=== PATIENT | female | born 1990 | race Caucasian/White ===

== ENCOUNTER 2018-07-05 16:02 | Emergency (ER) | payer SELFPAY ==
[2018-07-05 16:08] VITALS: BP 116/84; PULSE 126; RESP 28; TEMP 37; O2SAT 100; BMI 22.8
--- NOTE | 2018-07-05 16:52 | DI.RAD.S_ITS ---
PROCEDURE: XR CHEST 2V INDICATIONS: shortness of breath TECHNIQUE: 2 views of the chest were acquired. COMPARISON: None. FINDINGS: Surgical changes and devices: None. Lungs and pleura: No pleural effusions or pneumothorax. Lungs are clear. Mediastinum: Mediastinal contours are normal. Heart size is normal. Bones and chest wall: No suspicious bony abnormalities. Soft tissues appear unremarkable. IMPRESSION: No acute process. Dictated by: Diana Mcmillan M.D. on 07/05/2018 at 17:13 Approved by: Diana Mcmillan M.D. on 07/05/2018 at 17:14
--- NOTE | 2018-07-05 17:04 | ED_ITS ---
HPI - SOB/Dyspnea <JAVIER Kennedy - Last Filed: 07/05/18 21:13> General Chief Complaint: Shortness of Breath/Dyspnea Stated Complaint: trouble breathing Time Seen by Provider: 07/05/18 16:37 Source: patient Mode of arrival: ambulatory Limitations: no limitations History of Present Illness Patient presents with chief complaint of shortness of breath and cough on and off for a week. Also complains of congestion. She states she is coughing so hard that her right ribs hurt. She felt dizzy earlier today and fell while walking so she came into the emergency department. Patient stated she started having some numbness and tingling in her left hand and legs while on her way into the emergency department. She complains of abdominal pain in her lower stomach that occurred in triage. She denies any significant medical history, denies any daily medications has a history of anxiety and panic attacks. She denies any fevers, nausea vomiting or diarrhea. Patient denies any urinary symptoms denies dysuria urgency frequency. She denies vaginal symptoms. She denies chance of . Related Data Home Medications Medication Instructions Recorded Confirmed No Known Home Medications 07/05/18 07/05/18 Allergies Allergy/AdvReac Type Severity Reaction Status Date / Time No Known Drug Allergies Allergy Verified 07/05/18 16:15 Review of Systems <JAVIER Kennedy - Last Filed: 07/05/18 21:13> Review of Systems GENERAL: See HPI HEENT: Denies sinus pain, ear pain, sore throat, difficulty swallowing, dizziness. RESPIRATORY: Denies dyspnea, cough, wheezing, hemoptysis, sputum. CARDIOVASCULAR: Denies chest pain, palpitations, orthopnea, edema, GASTROINTESTINAL: See HPI : Denies dysuria, frequency, incontinence, hematuria, urinary retention. MUSCULOSKELETAL: denies weakness, joint pain, or bony pain SKIN: Denies rash, skin lesions, or other NEUROLOGIC: Denies weakness, headache, numbness, change in speech, confusion, seizures, incoordination. PSYCHIATRIC: No concerning psychosocial issues. 12 point review of systems is negative except for those stated above Exam <JAVIER Kennedy - Last Filed: 07/05/18 21:13> Narrative Exam Narrative: GENERAL: Lying on stretcher, teary put taking rapid deep breaths. HEAD: Atraumatic. Normocephalic. No temporal or scalp tenderness. EYES: Pupils equal round and reactive. Extraocular motions intact. No scleral icterus. No injection or drainage. ENT: Nose without bleeding, purulent drainage or septal hematoma. Throat without erythema, tonsillar hypertrophy or exudate. Uvula midline. Airway patent. NECK: Trachea midline. No JVD or lymphadenopathy. Supple, nontender, no meningeal signs. CARDIOVASCULAR: Tachycardic rate and regular rhythm without murmurs, gallops, or rubs. RESPIRATORY: Clear to auscultation. Breath sounds equal bilaterally. No wheezes , rales, or rhonchi. No increased respiratory effort. No cough on exam. Pain to palpation of right lower ribs. Slight pain on lateral chest wall compression. No pain on anterior posterior chest wall compression. GASTROINTESTINAL: Abdomen soft, nondistended. No hepato-splenomegaly, or palpable masses. No guarding. Diffusely tender to right lower quadrant and left lower quadrant palpation. EXTREMITIES: No clubbing, cyanosis, or edema. No joint tenderness, effusion, or edema noted. Strength is equal upper and lower extremities bilaterally. BACK: Nontender without deformity or crepitance. No flank tenderness. NEURO: AOx3. Anxious. Stable gait. No slurred speech. Cranial nerves grossly SKIN: No rash or erythema. Initial Vital Signs Initial Vital Signs: Vital Signs Temperature 98.6 F 07/05/18 16:08 Pulse Rate 126 H 07/05/18 16:08 Respiratory Rate 28 H 07/05/18 16:08 Blood Pressure 116/84 07/05/18 16:08 Pulse Oximetry 100 07/05/18 16:08 <Emil Freeman DO - Last Filed: 07/09/18 05:49> Initial Vital Signs Initial Vital Signs: Vital Signs Temperature 98.6 F 07/05/18 16:08 Pulse Rate 126 H 07/05/18 16:08 Respiratory Rate 28 H 07/05/18 16:08 Blood Pressure 116/84 07/05/18 16:08 Pulse Oximetry 100 07/05/18 16:08 Scores <CARMEN Kennedy-AMBROSE - Last Filed: 07/05/18 21:13> PERC Score Age greater than or equal to 50 years: No Heart rate greater than or equal to 100 bpm: No Room Air O2 Sat less than 95%: No Unilateral leg swelling: No Recent trauma or surgery: No Hemoptysis: No Prior PE or DVT: No Hormone Use: No Total PERC Score: 0 Course <TONY Kennedy - Last Filed: 07/05/18 21:13> Orders Ordered: Discontinued Medications Hydroxyzine Pamoate (Vistaril) 50 mg PO NOW ONE Stop: 07/05/18 18:02 Last Admin: 07/05/18 18:11 Dose: 50 mg Ketorolac Tromethamine (Toradol) 60 mg IM NOW ONE Stop: 07/05/18 18:02 Last Admin: 07/05/18 18:12 Dose: 60 mg Vital Signs - 8 hr 07/05/18 16:08 07/05/18 17:16 07/05/18 18:08 Temperature 98.6 F Pulse Rate 126 H 77 78 Respiratory Rate 28 H 18 17 Blood Pressure 116/84 Blood Pressure [Right Arm] 119/68 120/78 Pulse Oximetry 100 100 100 <Emil Freeman DO - Last Filed: 07/09/18 05:49> Orders Ordered: Discontinued Medications Hydroxyzine Pamoate (Vistaril) 50 mg PO NOW ONE Stop: 07/05/18 18:02 Last Admin: 07/05/18 18:11 Dose: 50 mg Ketorolac Tromethamine (Toradol) 60 mg IM NOW ONE Stop: 07/05/18 18:02 Last Admin: 07/05/18 18:12 Dose: 60 mg Vital Signs - 8 hr 07/05/18 16:08 07/05/18 17:16 07/05/18 18:08 Temperature 98.6 F Pulse Rate 126 H 77 78 Respiratory Rate 28 H 18 17 Blood Pressure 116/84 Blood Pressure [Right Arm] 119/68 120/78 Pulse Oximetry 100 100 100 MDM - SOB/Dyspnea <TONY Kennedy - Last Filed: 07/05/18 21:13> Lab Data Result diagrams: 07/05/18 17:20 07/05/18 17:20 Lab Results 07/05/18 07/05/18 Range/Units 17:20 17:20 WBC 8.4 (4.5-11.0) X10^3/uL RBC 4.45 (4.0-5.2) X10^6/uL Hgb 13.2 (12.0-16.0) g/dL Hct 39.7 (36-46) % MCV 89.3 (80-100) fL MCH 29.7 (26-34) PG MCHC 33.3 (30-36) % RDW 13.4 (11.6-14.8) % Plt Count 332 (150-400) X10^3/uL Neut % (Auto) 72.2 (50-75) % Lymph % (Auto) 18.1 L (25-40) % [place] % (Auto) 6.8 (3-14) % Eos % (Auto) 2.1 (2-4) % Baso % (Auto) 0.8 (0-2) % Neut # (Auto) 6100 H (4302-1789) /uL Sodium 143 (137-145) mmol/L Potassium 3.7 (3.4-5.1) mmol/L Chloride 106 (98-107) mmol/L Carbon Dioxide 25 (22-32) mmol/L BUN 16 (7-17) mg/dL Creatinine 0.60 (0.52-1.04) mg/dL Estimated GFR > 60.0 (>60) mL/min BUN/Creatinine Ratio 26.7 H (6-22) Glucose 97 (70-100) mg/dL Calcium 10.1 (8.4-10.2) mg/dL Total Bilirubin 1.4 H (0.2-1.3) mg/dL AST 25 (14-36) IU/L ALT 23 (9-52) IU/L Alkaline Phosphatase 57 (38-126) U/L Total Protein 8.6 H (6.3-8.2) g/dL Albumin 4.9 (3.5-5.0) g/dL Globulin 3.7 (1.7-4.1) g/dL Albumin/Globulin Ratio 1.3 (1.0-2.8) HCG, Quant Cancelled Point of Care Testing Test Results Negative Urine Dip Bedside Urine Glucose Negative Bedside Urine Bilirubin - Negative Bedside Urine Ketone - Negative Urine Specific [place] 1.015 Bedside Urine Occult Blood - Negative Bedside Urine pH 8.5 Bedside Urine Protein - Negative Bedside Urine Urobilinogen - Negative Bedside Urine Nitrite - Negative Bedside Urine Leukocytes - Negative Esterase Imaging Data Chest x-ray: Radiologist's impression: [address] [address] XRay Report Signed Patient: Cayla York [facility]#: [id number] : 1990Acct:[id number] Age/Sex: 28 / FDate of Service: 07/05/18 Loc: ED Accession Number: [id number] Procedure: XR chest 2V Ordering Provider: Donna Melendez PROCEDURE: XR CHEST 2V INDICATIONS: shortness of breath TECHNIQUE: 2 views of the chest were acquired. COMPARISON: None. FINDINGS: Surgical changes and devices: None. Lungs and pleura: No pleural effusions or pneumothorax. Lungs are clear. Mediastinum: Mediastinal contours are normal. Heart size is normal. Bones and chest wall: No suspicious bony abnormalities. Soft tissues appear unremarkable. IMPRESSION: No acute process. Dictated by: Diana Mcmillan M.D. on 07/05/2018 at 17:13 Approved by: Diana Mcmillan M.D. on 07/05/2018 at 17:14 ECG Data Attestation: I personally reviewed and interpreted this ECG as follows: Interpretation: Sinus tachycardia. Ventricular rate with 106. Regular rhythm. No ectopy noted. No ST elevation or depression MDM Narrative Medical decision making narrative: Patient presented with chief complaints of shortness of breath, congestion, lower abdominal pain and numbness and tingling. She was noted to be hyperventilating and tachycardic upon arrival. Her vital signs quickly normalized. Her numbness quickly improved. The patient had a normal CBC, CMP UA, negative test. She had an EKG done. She had a normal chest x-ray. I offered the patient Toradol for her chest wall pain, which she accepted. I also offered her hydroxyzine for anxiety. After that she changed into her clothing and states she wanted to leave. I believe she is having a combination of anxiety and upper respiratory infection of viral etiology. She is hemodynamically stable and has an overall benign exam in the emergency department. Discussed return precautions of acute concerns and also recommended she follow up with her primary care provider. <Emil Freeman DO - Last Filed: 07/09/18 05:49> Lab Data Lab Results 07/05/18 07/05/18 Range/Units 17:20 17:20 WBC 8.4 (4.5-11.0) X10^3/uL RBC 4.45 (4.0-5.2) X10^6/uL Hgb 13.2 (12.0-16.0) g/dL Hct 39.7 (36-46) % MCV 89.3 (80-100) fL MCH 29.7 (26-34) PG MCHC 33.3 (30-36) % RDW 13.4 (11.6-14.8) % Plt Count 332 (150-400) X10^3/uL Neut % (Auto) 72.2 (50-75) % Lymph % (Auto) 18.1 L (25-40) % [place] % (Auto) 6.8 (3-14) % Eos % (Auto) 2.1 (2-4) % Baso % (Auto) 0.8 (0-2) % Neut # (Auto) 6100 H (0811-6752) /uL Sodium 143 (137-145) mmol/L Potassium 3.7 (3.4-5.1) mmol/L Chloride 106 (98-107) mmol/L Carbon Dioxide 25 (22-32) mmol/L BUN 16 (7-17) mg/dL Creatinine 0.60 (0.52-1.04) mg/dL Estimated GFR > 60.0 (>60) mL/min BUN/Creatinine Ratio 26.7 H (6-22) Glucose 97 (70-100) mg/dL Calcium 10.1 (8.4-10.2) mg/dL Total Bilirubin 1.4 H (0.2-1.3) mg/dL AST 25 (14-36) IU/L ALT 23 (9-52) IU/L Alkaline Phosphatase 57 (38-126) U/L Total Protein 8.6 H (6.3-8.2) g/dL Albumin 4.9 (3.5-5.0) g/dL Globulin 3.7 (1.7-4.1) g/dL Albumin/Globulin Ratio 1.3 (1.0-2.8) HCG, Quant Cancelled Point of Care Testing Test Results Negative Urine Dip Bedside Urine Glucose Negative Bedside Urine Bilirubin - Negative Bedside Urine Ketone - Negative Urine Specific [place] 1.015 Bedside Urine Occult Blood - Negative Bedside Urine pH 8.5 Bedside Urine Protein - Negative Bedside Urine Urobilinogen - Negative Bedside Urine Nitrite - Negative Bedside Urine Leukocytes - Negative Esterase Discharge Plan Departure Patient Disposition: Home Clinical Impression: URI (upper respiratory infection), Acute chest wall pain Discharge Date/Time: 07/05/18 18:57 Interventions: ED Discharge Assessment Last Done: 07/05/18 18:57 Instructions: DI for Viral Upper Respiratory Infection -- Adult Activity Restrictions/Additional Instructions: You chest x-ray came back normal today. Your lab work also came back normal as did your urine. Please take [id number] comfort medications as needed. He can take cough syrup. Please rest and push fluids. Please do not take any Benadryl or antihistamines for 8 hr after the hydroxyzine in the emergency department. Please do not take any NSAIDs such as ibuprofen Aleve or naproxen for 8 hr after your pain injection in the emergency department. Please feel free to come back to the emergency department for any acute concerns. Prescriptions: No Action No Known Home Medications RF: 0 <Emil Freeman DO - Last Filed: 07/09/18 05:49> Coschrist[facility] ED Attending Rayo Attestation: I was immediately available in the department for consultation. Documentation has been reviewed. I agree with assessment and plan.
[2018-07-05 17:16] VITALS: BP 119/68; PULSE 77; RESP 18; O2SAT 100
[2018-07-05 17:28] LABS: Add Manual Diff / Slide Review NO; Basophils Percent Auto 0.8 % (0-2); Eosinophils Percent Auto 2.1 % (2-4); Hematocrit 39.7 % (36-46); Hemoglobin 13.2 g/dL (12.0-16.0); Lymphocytes Percent Auto 18.1 % (25-40); Mean Corpuscular HGB Conc 33.3 % (30-36); Mean Corpuscular Hemoglobin 29.7 PG (26-34); Mean Corpuscular Volume 89.3 fL (80-100); Monocytes Percent Auto 6.8 % (3-14); Neutrophils Absolute Auto 6100 /uL (3000-5900); Neutrophils Percent Auto 72.2 % (50-75); Platelet Count 332 X10^3/uL (150-400); Red Blood Cell Count 4.45 X10^6/uL (4.0-5.2); Red Cell Distribution Width 13.4 % (11.6-14.8); White Blood Cell Count 8.4 X10^3/uL (4.5-11.0)
[2018-07-05 17:38] LABS: Alanine Aminotransferase 23 IU/L (9-52); Albumin 4.9 g/dL (3.5-5.0); Albumin Globulin Ratio 1.3 (1.0-2.8); Alkaline Phosphatase 57 U/L (38-126); Aspartate Aminotransferase 25 IU/L (14-36); BUN Creatinine Ratio 26.7 (6-22); Bilirubin Total 1.4 mg/dL (0.2-1.3); Blood Urea Nitrogen 16 mg/dL (7-17); Calcium 10.1 mg/dL (8.4-10.2); Carbon Dioxide 25 mmol/L (22-32); Chloride 106 mmol/L (98-107); Estimated Glomerular Filt Rate > 60.0 mL/min (>60); Globulin 3.7 g/dL (1.7-4.1); Glucose 97 mg/dL (70-100); HEMOLYSIS < 15 (0-50); Potassium 3.7 mmol/L (3.4-5.1); Sodium 143 mmol/L (137-145); Total Protein 8.6 g/dL (6.3-8.2)
[2018-07-05 18:08] VITALS: BP 120/78; PULSE 78; RESP 17; O2SAT 100
[2018-07-05] MEDS: hydrOXYzine pamoate 25 MG CAPSULE 50 MG PO (18:11)
[2018-07-05] MEDS: KETOROLAC 60 MG/2 ML VIAL IM (18:12)
== END 2018-07-05 18:57 | disposition home or self-care (01) ==
PROVIDERS: Emergency Provider Nurse Practitioner Family
DX: J06.9 Acute upper respiratory infection, unspecified (principal); R07.89 Other chest pain
CPT/HCPCS: 36415; 71046; 80053; 81003; 81025; 85025; 93005; 93010; 96372; 99282; 99284; J1885